=== PATIENT | female | born 1995 | race Two or more races ===

== ENCOUNTER 2023-04-09 16:53 | Emergency (ER) | payer BC ==
[~2023-04-09] VITALS: Ht 154.9 cm; Wt 53.5 kg
[2023-04-09 17:10] VITALS: BP 117/76; TEMP 98.2
[2023-04-09] MEDS ORDERED: IBUP-1955 PO ×2 (17:45→19:25)
[2023-04-09] MEDS ORDERED: DICL1KIT14 TP ×2 (17:46→19:25)
[2023-04-09] MEDS ORDERED: IBUPROFEN 600 MG TABLET ONE (17:56)
[2023-04-09 18:00] VITALS: O2SAT 98
[2023-04-09] MEDS ORDERED: IBUPROFEN 600 MG TABLET PO ONE (18:00)
== END 2023-04-09 18:00 | disposition home or self-care (01) ==
LOC: ER 17:07
DX: M79.672 Pain in left foot (principal); Z79.899 Other long term (current) drug therapy